=== PATIENT | male | born 1950 | race Caucasian/White ===

== ENCOUNTER 2023-03-14 06:55 | Day surgery (SDC) | payer OTHER ==
[2023-03-07 10:29] LABS: BASOPHILS % (AUTO) 0.8 % (0-1); EOSINOPHILS # (AUTO) 0.1 X10'3 (0-0.9); EOSINOPHILS % (AUTO) 1.9 % (0-6); LYMPHOCYTES # (AUTO) 1.4 X10'3 (1.1-4.8); LYMPHOCYTES % (AUTO) 25.3 % (21-51); MEAN PLATELET VOLUME 8.2 FL (7.4-10.4); MONOCYTES # (AUTO) 0.5 X10'3 (0-0.9); MONOCYTES % (AUTO) 9.3 % (2-12); NEUTROPHILS # (AUTO) 3.4 X10'3 (1.8-7.7); NEUTROPHILS % (AUTO) 62.7 % (42-75); PRE OP HEMATOCRIT 38.9 % (42.0-52.0); PRE OP HEMOGLOBIN 12.8 g/dL (14.0-17.9); PRE OP PLATELET COUNT 272 X10'3 (140-440); PRE OP WHITE BLOOD COUNT 5.4 10'3 (4.8-10.8); RED BLOOD COUNT 4.27 X10'6 (4.70-6.10); RED CELL DISTRIBUTION WIDTH 13.2 % (11.5-14.5)
[2023-03-07 10:45] LABS: ALBUMIN 3.5 G/DL (3.4-5.0); ALBUMIN/GLOBULIN RATIO 0.8 (1.1-1.5); ALKALINE PHOSPHATASE 56 IU/L (46-116); BLOOD UREA NITROGEN 22 MG/DL (7-18); BUN/CREATININE RATIO 20.8 (10.0-20.0); CALCIUM 9.3 MG/DL (8.5-10.1); CHLORIDE 102 MMOL/L (99-107); CREATININE 1.06 MG/DL (0.60-1.10); PRE OP ALT 56 U/L (30-65); PRE OP ANION GAP 10 (8-16); PRE OP AST 28 U/L (10-37); PRE OP BILIRUB, TOTAL 0.3 MG/DL (0.0-1.0); PRE OP GLUCOSE 104 MG/DL (70-104); PRE OP POTASSIUM 4.6 MMOL/L (3.4-5.1); PRE OP SODIUM 138 MMOL/L (135-145); TOTAL CARBON DIOXIDE 26.3 MMOL/L (24-32); TOTAL PROTEIN 7.8 G/DL (6.4-8.2); eGFR 69 ML/MIN
[2023-03-14] VITALS (20 sets, daily range): BP systolic 122–167; BP diastolic 58–96; PULSE 59–76; RESP 13–20; TEMP 97.4–98.7; O2SAT 91–100
[~2023-03-14] VITALS: Ht 167.6 cm; Wt 108.5 kg
[~2023-03-14 06:55] MED LIST: ASCO500C17 PO; CHOL20004 PO; LISI40TA13 PO; MAGN500C4 PO; TURM500T PO; ZINC100T2 PO; cefazolin 2gm/D5W 100mL 100 ML IV ONE; famotidine 20mg tablet PO ONE; tranexamic acid 650mg tablet PO ONE; vancomycin 1,500 MG in NS 300ml IV soln IV ONE
--- NOTE | 2023-03-14 08:00 | NUR ---
PT STATES HE BATHED AND USED BACTROBAN OINTMENT THE LAST 5 DAYS PER TOTAL JOINT REPLACEMENT PROTOCOL. PT DENIES ANY DECREASED SENSATION OR TINGLING IN LEFT ARM/HAND. RADIAL PULSE PALPABLE 2+. PT WATCHED TOTAL SHOULDER REPLACEMENT ON YOU-TUBE. Addendum: 03/14/23 at 1251 by Desiree Matthew RN Amended: Links added.
[2023-03-14] MEDS: ringers solution, lacted 1,000 ML IV SCH ×2 (08:58→15:28)
[2023-03-14] MEDS ORDERED: ondansetron/PF 4mg/2ml inj IV PRN ×2 (09:20→13:25)
[2023-03-14] MEDS ORDERED: morphine 2 MG/ML inj. syringe IV PRN (09:20)
[2023-03-14] MEDS ORDERED: ringers solution, lacted 1,000 ML IV SCH (09:20)
[2023-03-14] MEDS ORDERED: morphine 4 MG/ML inj SYRINge IV PRN (09:20)
[2023-03-14] MEDS ORDERED: meperidine/PF 25mg/ml syringe IV PRN ×3 (09:20)
[2023-03-14] MEDS ORDERED: proCHLORperazine 10 MG/2 ml inj IV PRN (09:20)
[2023-03-14] MEDS ORDERED: ketorolac trometh. 30mg/ml inj. ONE (10:34)
[2023-03-14] MEDS ORDERED: ROPIVAcaine 0.5% (5mg/ml) 30ml vial ONE ×2 (10:35→11:31)
[2023-03-14] MEDS ORDERED: sevoflurane 250ml liquid IH ONE (10:37)
[2023-03-14] MEDS ORDERED: ondansetron/PF 4mg/2ml inj ONE (10:37)
[2023-03-14] MEDS ORDERED: aprepitant 40mg capsule PO ONE (10:38)
[2023-03-14] MEDS ORDERED: fentaNYL/PF 50MCG/1 ML 2ML syringe ONE (10:49)
[2023-03-14] MEDS ORDERED: MIDAZolam 1 MG/ML 5ML VIAL ONE (10:50)
[2023-03-14] MEDS ORDERED: LIDOcaine 1%/PF 5ML 10 MG/ML VIAL ONE (11:25)
[2023-03-14] MEDS ORDERED: propofol inj 20 ML IV ONE (11:25)
[2023-03-14] MEDS ORDERED: rocuronium 10mg/ml inj IV ONE (11:25)
[2023-03-14] MEDS ORDERED: dexamethasone sod phosphate 4mg/ml inj. ONE (11:31)
[2023-03-14] MEDS ORDERED: ROPIVAcaine 0.2%/PF PUMP/bolus 545 ML INTERSCALE SCH (11:55)
[2023-03-14] MEDS ORDERED: ROPIVAcaine 0.2% (10 MG/5 ML) BOLUS INJECTION INTERSCALE PRN (11:55)
[2023-03-14] MEDS ORDERED: ROPIVAcaine 0.5% (5mg/ml) 30ml vial IJ ONE ×3 (12:22→13:01)
--- NOTE | 2023-03-14 13:19 | NUR ---
Received from OR via HOSPITAL BED TO RR 6, accompanied by Anesthesiologist ALEKSANDR and report given by Anesthesiolgist. PT ON 10L VIA MASK WITH SPO2 AT 98%. LR RUNNING AT 100ML/HR THRU PIV ON RIGHT HAND. LEFT SHOULDER DRESSING, CDI COVERED WITH WRAP SLING WITH ICE AND ARM SLING. SCD'S IN PLACE. WILL CONTINUE TO ASSESS
[2023-03-14] MEDS ORDERED: bisacodyl 10mg suppository rectal RC PRN (13:25)
[2023-03-14] MEDS ORDERED: naloxone 0.4 mg/ml inj IV PRN (13:25)
[2023-03-14] MEDS ORDERED: acetaminophen 325mg tablet PO PRN (13:25)
[2023-03-14] MEDS ORDERED: HYDROcodone/acetaminophen 10/325mg tab PO PRN (13:25)
[2023-03-14] MEDS ORDERED: HYDROmorphone 1 mg/ml syringe IV PRN (13:25)
[2023-03-14] MEDS ORDERED: HYDROmorphone inj. 0.5 MG/0.5 ML DISP.SYRIN IV PRN (13:25)
[2023-03-14] MEDS ORDERED: magnesium hydroxide 30ml (MOM) UD suspension PO PRN (13:25)
[2023-03-14] MEDS ORDERED: oxyCODONE IR 5mg (immed. release) tablet PO PRN ×2 (13:25)
[2023-03-14] MEDS ORDERED: diphenhydrAMINE 25mg capsule PO PRN ×2 (13:25)
--- NOTE | 2023-03-14 14:50 | NUR ---
PT WAS TRANSFERRED UP TO ROOM 4023A WHERE ACCEPTING NURSE WAS PRESENT. DRESSING TO LEFT SHOULDER UNCHANGED. PATIENTS VSS. CALL LIGHT WITHIN REACH, BLL. PATIENT HOOKED UP TO POST OP VS. PERSONAL BELONGINGS WERE SENT UP WITH PATIENT.
[2023-03-14] MEDS: potassium cl 20mEq in 1/2 NS 1,000 ML IV SCH ×2 (15:29→20:16)
[2023-03-14] MEDS: ceFAZolin/D5W- 1GM premix 50 ML IV SCH (17:45)
--- NOTE | 2023-03-14 18:00 | NUR ---
I have reviewed and agree with interventions, assessments, and documentation by Kathy Shipman LVN.
[2023-03-14] MEDS ORDERED: vancomycin/NS 1 GM ADD-VANTAGE 250 ML IV SCH (20:00)
[2023-03-14] MEDS ORDERED: sennosides 8.6mg tablet PO SCH (21:00)
[2023-03-15] MEDS: potassium cl 20mEq in 1/2 NS 1,000 ML IV SCH (00:55)
[2023-03-15 02:00] VITALS: BP 142/67; PULSE 63; RESP 16; TEMP 97.9; O2SAT 95
[2023-03-15] MEDS: ceFAZolin/D5W- 1GM premix 50 ML IV SCH (02:12)
[2023-03-15] MEDS: HYDROcodone/acetaminophen 10/325mg tab PO PRN ×2 (05:16→09:48)
[2023-03-15 06:00] VITALS: BP 130/67; PULSE 61; RESP 19; TEMP 96.9; O2SAT 96
[2023-03-15 07:33] LABS: ANION GAP 10 (8-16); CHLORIDE 104 MMOL/L (99-107); POTASSIUM 4.6 MMOL/L (3.5-5.1); SODIUM 136 MMOL/L (135-145); TOTAL CARBON DIOXIDE 22.3 MMOL/L (24-32)
[2023-03-15 07:47] LABS: BASOPHILS % (AUTO) 0.3 % (0-1); EOSINOPHILS % (AUTO) 0 % (0-6); HEMATOCRIT 36.4 % (42.0-52.0); HEMOGLOBIN 11.9 g/dl (14.0-17.9); LYMPHOCYTES # (AUTO) 0.6 X10'3 (1.1-4.8); LYMPHOCYTES % (AUTO) 4.2 % (21-51); MEAN CORPUSCULAR HEMOGLOBIN 29.7 PG (27.0-31.0); MEAN CORPUSCULAR HGB CONC 32.7 g/dL (33.0-36.5); MEAN CORPUSCULAR VOLUME 90.9 FL (78-98); MEAN PLATELET VOLUME 9.4 FL (7.4-10.4); MONOCYTES # (AUTO) 0.6 X10'3 (0-0.9); NEUTROPHILS # (AUTO) 13.9 X10'3 (1.8-7.7); NEUTROPHILS % (AUTO) 91.5 % (42-75); PLATELET COUNT 204 X10'3 (140-440); RED CELL DISTRIBUTION WIDTH 13.5 % (11.5-14.5); WHITE BLOOD COUNT 15.2 X10'3 (4.5-11.0)
[2023-03-15 08:00] VITALS: RESP 18; O2SAT 95
[2023-03-15] MEDS ORDERED: cholecalciferol (vitamin D3) 1,000 unit (25mcg) tablet PO SCH (08:00)
[2023-03-15] MEDS ORDERED: magnesium oxide 400mg tablet PO SCH (08:00)
[2023-03-15] MEDS ORDERED: lisinopril 20mg tablet PO SCH (08:00)
[2023-03-15] MEDS ORDERED: ascorbic acid 500mg tablet PO SCH (08:00)
[2023-03-15] MEDS ORDERED: aspirin 325mg tablet PO SCH (08:30)
[2023-03-15 10:00] VITALS: BP 121/60; PULSE 66; RESP 18; TEMP 97.9; O2SAT 95
--- NOTE | 2023-03-15 11:59 | NUR ---
Per EMR pt s/p reverse left TSA. Pt seen at bedside for written and verbal protein education. Pt states he eats a lot of protein at home and endorses a good appetite, currently on a regular diet receiving double protein TID and eating well, documented with 75% PO intake of first meal. Pt denies any questions at this time. RD contact information provided and pt encouraged to reach out if needed. Pt denies food allergies or difficulty chewing/swallowing. Will continue to follow. Addendum: 03/15/23 at [address] Amended: Links added.
--- NOTE | 2023-03-15 12:30 | NUR ---
Patient discharged home via POV with spouse. All personal belongings including CPAP/ cool packs sent with. PIV d/c'd tip in tact. Patient alert and appropriate for discharge.
== END 2023-03-15 12:24 | disposition home or self-care (01) ==
LOC: PAS 06:55 → ORTHO 4S 13:29 → PAS 03-15 12:24
PROVIDERS: ATTEND Orthopaedic Surgery
DX: M75.122 Complete rotator cuff tear or rupture of left shoulder, not specified as traumatic (principal); M19.012 Primary osteoarthritis, left shoulder; I10 Essential (primary) hypertension; G47.30 Sleep apnea, unspecified; I25.10 Atherosclerotic heart disease of native coronary artery without angina pectoris; E66.01 Morbid (severe) obesity due to excess calories; Z68.39 Body mass index [BMI] 39.0-39.9, adult; G89.18 Other acute postprocedural pain; Z95.5 Presence of coronary angioplasty implant and graft; Z79.899 Other long term (current) drug therapy; Z87.891 Personal history of nicotine dependence; Z72.89 Other problems related to lifestyle
CPT/HCPCS: 23430; 23472; 36415; 64416; 80051; 80053; 82948; 85025; 87081; 97110; 97161; C1776; J0690; J1100; J1885; J2250; J2405; J2704; J2795; J3010; J3370; J3480; J3490; J7030; J7120; J8501; Z7506; Z7508; Z7512; 97530; A4615; A4618; A7000; G0378